=== PATIENT | male | born 1975 ===

== ENCOUNTER 2021-05-28 12:13 | Emergency (ER) | payer BC ==
--- NOTE | 2021-05-28 13:37 | EDM.PDOC ---
ED HPI GENERAL MEDICAL PROBLEM - General Chief Complaint: Respiratory Problem Stated Complaint: SOB/HAVING HARD TIME BREATHING Time Seen by Provider: 05/28/21 13:24 - History of Present Illness INITIAL COMMENTS - FREE TEXT/NARRATIVE: 45-year-old male presents to the emergency department complaining of shortness of breath. Patient was diagnosed last Wednesday with Covid and has had symptoms for about 2 weeks. Over the last day he started having increasing shortness of breath. He denies any chest pain. No history of blood clots. No unilateral leg swelling. No recent travel or injury or cancer or surgery. Moderate symp toms - Related Data Allergies Allergy/AdvReac Type Severity Reaction Status Date / Time azithromycin Allergy Other Verified 05/28/21 13:23 Home Meds: Home Meds . [No Known Home Meds] 05/28/21 [History] Past Medical History - Past Health History Medical/Surgical History: Denies Medical/Surgical History - Infectious Disease History Infectious Disease History: Reports: None Social & Family History - Tobacco Use Tobacco Use Status *Q: Never Tobacco User - Caffeine Use Caffeine Use: Reports: None - Recreational Drug Use Recreational Drug Use: No ED ROS GENERAL - Review of Systems Review Of Systems: Comprehensive ROS is negative, except as noted in HPI. Constitutional: Denies: Fever Respiratory: Reports: Shortness of Breath Cardiovascular: Denies: Chest Pain GI/Abdominal: Denies: Abdominal Pain, Diarrhea, Nausea, Vomiting Musculoskeletal: Denies: Leg Pain Skin: Reports: No Symptoms ED EXAM, GENERAL - Physical Exam Exam: See Below Free Text/Narrative:: CONSTITUTIONAL: well appearing in no acute distress SKIN: Warm, dry, and intact without rash HENT: Normocephalic, atraumatic, PULMONARY: clear to ausculation bilaterally. No rales, rhonchi, wheezing CARDIOVASCULAR: Tachycardia no murmurs or rubs or gallops GASTROINTESTINAL: soft, nondistended, nontender NEUROLOGIC: normal speech, II-XII intact. light touch/5/5 power equal and symmetric in upper and lower extremities without deficit MUSCULOSKELETAL: no gross deformities, atraumatic PSYCHIATRIC: normal mood and affect #1 Interpretation Time: 13:37 EKG Interpretation Comments: 114, sinus tachycardia, nonspecific ST/T findings #2 Interpretation Time: 14:54 EKG Interpretation Comments: 113, sinus tachycardia, nonspecific ST/T findings. Minor ST depression possible in inferior leads Course - Vital Signs Text/Narrative:: 3:40Pm evaluating CT. concerning for saddle PE. awaiting rad read. Called to expedite reading and speak to radiologist. Calling [facility] to see if they do cathether directed lytics. pt bp stable. tach 113. I was able to text the identified information a scroll of images to the interventional neurologist at [facility] in [place], Dr. Ortiz. He states there is definitely a saddle embolus. He recommends transfer for very likely directed thrombolytics. Patient evaluated and still looks well other than some tachycardia. Patient continues to not have any evidence of hypotension. Patient does have troponin elevation there was consideration the risk versus benefits of thrombolytics. However, at this time in this younger patient without any significant comorbidities that only has mild shortness of breath and tachycardia thrombolytics will be held for this immediate time. Nonetheless ,we will expedite transfer and air ambulance contacted. Critical care: I spent 45 minutes of critical care time with this patient not including reportable procedures. There was an acute impairment of an organ system with a high probability of imminent or life threatening deterioration in the patient`s condition. Interventions and changes required in the course of therapy are located in the chart. Time involved was spent in direct patient care, reviewing ancillary data, old records, consulting with decision makers, EMS, other doctors, giving orders and documenting.. Last Recorded V/S: Last Vital Signs Temp 36.6 C 05/28/21 13:23 Pulse 105 H 05/28/21 15:45 Resp 18 05/28/21 15:45 BP 107/69 05/28/21 15:45 Pulse Ox 95 05/28/21 15:45 - Orders/Labs/Meds Orders: Active Orders 24 hr Category Date Time Status Cardiac Monitoring [RC] . DIRECTED Care 05/28/21 14:44 Active Pulse Oximetry [RC] ASDIRECTED Care 05/28/21 14:44 Active Ang Chest [CT] Stat Exams 05/28/21 14:41 Taken B-TYPE NATRIURETIC PEPTIDE,BNP [CHEM] Stat Lab 05/28/21 13:42 Received PTT,PARTIAL THROMBOPLSTIN TIME [COAG] Q6H Lab 05/28/21 22:15 Ordered PTT,PARTIAL THROMBOPLSTIN TIME [COAG] Q6H Lab 05/29/21 04:15 Ordered PTT,PARTIAL THROMBOPLSTIN TIME [COAG] Q6 Lab 05/29/21 10:15 Ordered PTT,PARTIAL THROMBOPLSTIN TIME [COAG] Q6 Lab 05/29/21 16:15 Ordered PTT,PARTIAL THROMBOPLSTIN TIME [COAG] Q6 Lab 05/29/21 22:15 Ordered PTT,PARTIAL THROMBOPLSTIN TIME [COAG] Q6 Lab 05/30/21 04:15 Ordered Heparin Sodium/0.45% NaCl [Heparin 25,000 Units in 1/2 Med 05/28/21 16:15 Active NS 500 ML] 500 ml IV TITRATE Medication Orders Heparin Sodium/Sodium Chloride (Heparin 25,000 Units In 1/2 Ns 500 Ml) 500 mls @ 27.125 mls/hr IV TITRATE KAMRYN; Protocol Labs: Laboratory Tests 05/28/21 05/28/21 05/28/21 Range/Units 13:42 13:42 13:42 WBC 7.68 (4.0-11.0) K/uL RBC 5.03 (4.50-5.90) M/uL Hgb 14.7 (13.0-17.0) g/dL Hct 42.7 (38.0-50.0) % MCV 84.9 (80.0-98.0) fL MCH 29.2 (27.0-32.0) pg MCHC 34.4 (31.0-37.0) g/dL RDW Std Deviation 38.6 (28.0-62.0) fl RDW Coeff of Marlene 13 (11.0-15.0) % Plt Count 162 (150-400) K/uL MPV 9.50 (7.40-12.00) fL Neut % (Auto) 77.5 (48.0-80.0) % Lymph % (Auto) 12.6 L (16.0-40.0) % Brooks % (Auto) 9.5 (0.0-15.0) % Eos % (Auto) 0.3 (0.0-7.0) % Baso % (Auto) 0.1 (0.0-1.5) % Neut # (Auto) 6.0 H (1.4-5.7) K/uL Lymph # (Auto) 1.0 (0.6-2.4) K/uL Brooks # (Auto) 0.7 (0.0-0.8) K/uL Eos # (Auto) 0.0 (0.0-0.7) K/uL Baso # (Auto) 0.0 (0.0-0.1) K/uL Nucleated RBC % 0.0 /100WBC Nucleated RBCs # 0 K/uL APTT 26.9 (18.6-31.3) SEC D-Dimer, Quantitative > 35.20 H (0.0-0.50) mg/L FEU Sodium 138 (136-148) mmol/L Potassium 4.6 (3.5-5.1) mmol/L Chloride 101 (98-107) mmol/L Carbon Dioxide 26.5 (21.0-32.0) mmol/L BUN 15 (7.0-18.0) mg/dL Creatinine 1.2 (0.8-1.3) mg/dL Est Cr Clr Drug Dosing 89.43 mL/min Estimated GFR (MDRD) > 60.0 ml/min Glucose 107 H (74-106) mg/dL Calcium 8.6 (8.5-10.1) mg/dL Ferritin (26-388) ng/mL Total Bilirubin 1.2 H (0.2-1.0) mg/dL AST 22 (15-37) IU/L ALT 39 (14-63) IU/L Alkaline Phosphatase 64 (46-116) U/L Troponin I 7.575 H* (0.000-0.056) ng/mL Total Protein 8.0 (6.4-8.2) g/dL Albumin 3.3 L (3.4-5.0) g/dL Globulin 4.7 H (2.6-4.0) g/dL Albumin/Globulin Ratio 0.7 L (0.9-1.6) 05/28/21 Range/Units 13:42 WBC (4.0-11.0) K/uL RBC (4.50-5.90) M/uL Hgb (13.0-17.0) g/dL Hct (38.0-50.0) % MCV (80.0-98.0) fL MCH (27.0-32.0) pg MCHC (31.0-37.0) g/dL RDW Std Deviation (28.0-62.0) fl RDW Coeff of Marlene (11.0-15.0) % Plt Count (150-400) K/uL MPV (7.40-12.00) fL Neut % (Auto) (48.0-80.0) % Lymph % (Auto) (16.0-40.0) % Brooks % (Auto) (0.0-15.0) % Eos % (Auto) (0.0-7.0) % Baso % (Auto) (0.0-1.5) % Neut # (Auto) (1.4-5.7) K/uL Lymph # (Auto) (0.6-2.4) K/uL Brooks # (Auto) (0.0-0.8) K/uL Eos # (Auto) (0.0-0.7) K/uL Baso # (Auto) (0.0-0.1) K/uL Nucleated RBC % /100WBC Nucleated RBCs # K/uL APTT (18.6-31.3) SEC D-Dimer, Quantitative (0.0-0.50) mg/L FEU Sodium (136-148) mmol/L Potassium (3.5-5.1) mmol/L Chloride (98-107) mmol/L Carbon Dioxide (21.0-32.0) mmol/L BUN (7.0-18.0) mg/dL Creatinine (0.8-1.3) mg/dL Est Cr Clr Drug Dosing mL/min Estimated GFR (MDRD) ml/min Glucose (74-106) mg/dL Calcium (8.5-10.1) mg/dL Ferritin 654 H (26-388) ng/mL Total Bilirubin (0.2-1.0) mg/dL AST (15-37) IU/L ALT (14-63) IU/L Alkaline Phosphatase (46-116) U/L Troponin I (0.000-0.056) ng/mL Total Protein (6.4-8.2) g/dL Albumin (3.4-5.0) g/dL Globulin (2.6-4.0) g/dL Albumin/Globulin Ratio (0.9-1.6) Meds: Medications Generic Name Dose Route Start Last Admin Trade Name Pietro PRN Reason Stop Dose Admin Heparin Sodium/Sodium Chloride 500 mls @ 27.125 mls/hr 05/28/21 16:15 Heparin 25,000 Units In 1/2 Ns 500 Ml IV TITRATE KAMRYN Protocol 13 UNITS/KG/HR Discontinued Medications Generic Name Dose Route Start Last Admin Trade Name Pietro PRN Reason Stop Dose Admin Heparin Sodium (Porcine) 5,000 units 05/28/21 16:03 Heparin Sodium 5,000 Units/Ml Vial IVPUSH 05/28/21 16:04 ONETIME ONE Iopamidol 100 ml 05/28/21 15:25 05/28/21 15:26 Iopamidol 755 Mg/Ml 500 Ml Multipack Bottle IVPUSH 05/28/21 15:26 100 ml ONETIME STA Administration Departure - Departure Time of Disposition: 16:20 Disposition: DC/Tfer to Acute Hospital 02 Condition: Fair, Serious Clinical Impression: Saddle embolus of pulmonary artery - Discharge Information Referrals: PCP,None [Primary Care Provider] - Forms: ED Department Discharge Sepsis Event Note (ED) - Evaluation Sepsis Screening Result: Possible Sepsis Risk - Focused Exam Vital Signs: Vital Signs Temp Pulse Resp BP Pulse Ox 05/28/21 15:45 105 H 18 107/69 95 05/28/21 14:51 106 H 16 103/70 97 05/28/21 13:23 36.6 C 113 H 18 98/73 95 - My Orders Last 24 Hours: My Active Orders 05/28/21 13:42 B-TYPE NATRIURETIC PEPTIDE,BNP [CHEM] Stat 05/28/21 14:41 Ang Chest [CT] Stat 05/28/21 14:44 Cardiac Monitoring [RC] . DIRECTED Pulse Oximetry [RC] ASDIRECTED 05/28/21 16:15 Heparin Sodium/0.45% NaCl [Heparin 25,000 Units in 1/2 NS 500 ML] 500 ml IV TITRATE 05/28/21 22:15 PTT,PARTIAL THROMBOPLSTIN TIME [COAG] Q6H 05/29/21 04:15 PTT,PARTIAL THROMBOPLSTIN TIME [COAG] Q6H 05/29/21 10:15 PTT,PARTIAL THROMBOPLSTIN TIME [COAG] Q6H 05/29/21 16:15 PTT,PARTIAL THROMBOPLSTIN TIME [COAG] Q6H 05/29/21 22:15 PTT,PARTIAL THROMBOPLSTIN TIME [COAG] Q6H 05/30/21 04:15 PTT,PARTIAL THROMBOPLSTIN TIME [COAG] Q6H - Assessment/Plan Last 24 Hours: My Active Orders 05/28/21 13:42 B-TYPE NATRIURETIC PEPTIDE,BNP [CHEM] Stat 05/28/21 14:41 Ang Chest [CT] Stat 05/28/21 14:44 Cardiac Monitoring [RC] . DIRECTED Pulse Oximetry [RC] ASDIRECTED 05/28/21 16:15 Heparin Sodium/0.45% NaCl [Heparin 25,000 Units in 1/2 NS 500 ML] 500 ml IV TITRATE 05/28/21 22:15 PTT,PARTIAL THROMBOPLSTIN TIME [COAG] Q6H 05/29/21 04:15 PTT,PARTIAL THROMBOPLSTIN TIME [COAG] Q6H 05/29/21 10:15 PTT,PARTIAL THROMBOPLSTIN TIME [COAG] Q6H 05/29/21 16:15 PTT,PARTIAL THROMBOPLSTIN TIME [COAG] Q6H 05/29/21 22:15 PTT,PARTIAL THROMBOPLSTIN TIME [COAG] Q6H 05/30/21 04:15 PTT,PARTIAL THROMBOPLSTIN TIME [COAG] Q6H
[2021-05-28 14:19] LABS: BLOOD UREA NITROGEN,BUN 15 mg/dL (7.0-18.0); CARBON DIOXIDE,CO2 26.5 mmol/L (21.0-32.0); CHLORIDE,CL 101 mmol/L (98-107); GLUCOSE RANDOM 107 mg/dL (74-106); POTASSIUM,K 4.6 mmol/L (3.5-5.1); SODIUM,NA 138 mmol/L (136-148)
--- NOTE | 2021-05-28 14:51 | CR ---
Indication: Chest Pain Comparison: CT chest April 05, 2021 Technique: Single AP view chest Findings: There is hyperinflation and chronic interstitial change. There are increased interstitial markings with scattered airspace opacities likely representing pulmonary edema and/or developing multifocal infiltrates. The cardiac silhouette is mildly prominent. The bony thorax is grossly intact. Impression: Increasing interstitial markings with scattered airspace opacities likely representing developing pulmonary edema and/or multifocal infiltrates. Dictated by Davian Sears MD @ 05/28/2021 2:50:[address] Davian Sears @ May 28 2021 2:50PM
[2021-05-28] MEDS ORDERED: Iopamidol 755 MG/ML 500 ML Multipack Bottle IVPUSH STA (15:25)
[2021-05-28] MEDS ORDERED: Heparin Sodium 5,000 Units/ML Vial IVPUSH ONE (16:03)
[2021-05-28] MEDS ORDERED: Heparin Sodium/0.45% NaCl 500 ML IV SCH (16:15)
--- NOTE | 2021-05-28 16:32 | CT ---
INDICATION: PE, covid, hypoxia, tachycardia, trop<7, d-dimer <35. COMPARISON: Chest radiograph 05/28/2021. TECHNIQUE: CT of the chest with 100 cc of Isovue 370 IV contrast. Coronal and sagittal reconstructions. 3D post processing was performed. FINDINGS: Normal heart size. Normal caliber thoracic aorta. No pericardial effusion. Calcified right hilar lymph nodes compatible with prior granulomatous disease. Multiple prominent mediastinal lymph nodes are likely reactive. There are also mildly enlarged bilateral axillary lymph nodes, and enlarged lymph nodes within the right anterior pericardial space. The main pulmonary artery is mildly enlarged measuring 3.5 cm in diameter. There is a large burden of pulmonary emboli including a saddle embolus extending into both main pulmonary arteries as well as the segmental and subsegmental branches of all the lobes bilaterally. The RV/LV ratio is elevated measuring 1.3 compatible with right heart strain. Multifocal patchy ground-glass opacities throughout the lungs bilaterally with a peripheral distribution typical of COVID pneumonia. Innumerable tiny centrilobular ground-glass nodules greatest in the upper lungs. No pleural effusion or pneumothorax. No definite pulmonary infarct. No central endobronchial lesion. The imaged thyroid gland is normal in appearance. The visualized upper abdomen is unremarkable. The bones are unremarkable. IMPRESSION: 1. Large burden of acute pulmonary emboli involving all the lobes as well as a saddle embolus extending into the main pulmonary arteries. Evidence of right heart strain with elevated RV/LV ratio. 2. Multifocal patchy ground-glass opacities throughout the lungs bilaterally in a peripheral distribution typical of COVID pneumonia. Innumerable tiny centrilobular ground-glass nodules are likely infectious or inflammatory. 3. Mediastinal, bilateral axillary, and right anterior pericardial space lymphadenopathy. 4. Findings discussed with Jeremías Garrido at 4:29 p.m. on 05/28/2021. Please note that all CT scans at this facility use dose modulation, iterative reconstruction, and/or weight-based dosing when appropriate to reduce radiation dose to as low as reasonably achievable. Dictated by Josette Glynn MD @ 05/28/2021 4:32:[address] Josette Glynn @ May 28 2021 4:32PM
== END 2021-05-28 16:36 ==
LOC: MW.ED 12:13
DX: I26.92 Saddle embolus of pulmonary artery without acute cor pulmonale (principal); Z88.1 Allergy status to other antibiotic agents
CPT/HCPCS: 36415; 71045; 71275; 80053; 82728; 83880; 84484; 85025; 85379; 85730; 93005; 96374; 99285; J1644; Q9967